=== PATIENT | female | born 1950 | race Two or more races ===

== ENCOUNTER 2020-06-05 08:39 | Outpatient (CLI) | payer OTHER ==
[~2020-06-05] VITALS: Ht 154.9 cm; Wt 49.0 kg
== END 2020-06-05 09:45 | disposition home or self-care (01) ==
LOC: OFIC 805 08:39
PROVIDERS: ATTEND Otolaryngology
DX: H90.3 Sensorineural hearing loss, bilateral (principal); H61.23 Impacted cerumen, bilateral; L30.8 Other specified dermatitis